=== PATIENT | male | born 1960 | race African-American/Black ===

== ENCOUNTER 2020-11-13 13:27 | Inpatient (IN) | payer MEDICAID ==
[~2020-11-13] VITALS: Ht 167.6 cm; Wt 53.9 kg
[2020-11-13 14:46] LABS: COVID AG,FIA SOURCE NASOPHARYNGEAL
[2020-11-13] MEDS ORDERED: LORazepam 2 MG TABLET PO PRN (17:15)
[2020-11-13] MEDS ORDERED: HALOPERIDOL 5 MG TABLET PO PRN (17:15)
[2020-11-13] MEDS ORDERED: ZOLPIDEM TARTRATE 10 MG TABLET PO PRN (17:15)
[2020-11-14 13:24] VITALS: BP 118/60
[2020-11-14] MEDS ORDERED: PNEUMOCOCCAL VACCINE POLYVALENT 0.5 ML VIAL [PPSV23] IM. ONE (15:00)
[2020-11-14 16:34] VITALS: BP 115/77
[2020-11-15] MEDS ORDERED: GuaiFENesin/D-METHORPHAN [SUGAR-FREE] 200-20MG/10 ML SYRUP UDCUP PO PRN (06:30)
[2020-11-15] MEDS ORDERED: DOCUSATE SODIUM 100 MG CAPSULE PO PRN (06:30)
[2020-11-15] MEDS ORDERED: ONDANSETRON HCL 4 MG TABLET PO PRN (06:30)
[2020-11-15] MEDS ORDERED: PETROLATUM,WHITE 28 GM JELLY TP PRN (06:30)
[2020-11-15] MEDS ORDERED: ALBUTEROL SULFATE HFA 90 MCG/PUFF 8 GM INHALER IH PRN (06:30)
[2020-11-15] MEDS ORDERED: MAG HYDROX/AL HYDROX/SIMETH ES 30 ML SUSPENSION UDCUP PO PRN (06:30)
[2020-11-15] MEDS ORDERED: NICOTINE 14 MG/24 HOUR PATCH TD PRN (06:30)
[2020-11-15] MEDS ORDERED: LOPERAMIDE HCL 2 MG CAPSULE PO PRN (06:30)
[2020-11-15] MEDS ORDERED: IBUPROFEN 400 MG TABLET PO PRN (06:30)
[2020-11-15] MEDS ORDERED: ACETAMINOPHEN 325 MG TABLET PO PRN (06:30)
[2020-11-15] MEDS ORDERED: CloNIDine HCL 0.1 MG TABLET PO PRN (06:30)
[2020-11-15] MEDS ORDERED: MAGNESIUM HYDROXIDE SUSPENSION 30 ML UDCUP PO PRN (06:30)
[2020-11-15 08:09] VITALS: BP 121/73
[2020-11-15] MEDS: NICOTINE 7 MG/24 HOUR PATCH TD SCH (09:00)
[2020-11-15] MEDS: SERTRALINE HCL 50 MG TABLET PO SCH (15:51)
[2020-11-15 16:08] VITALS: BP 135/71
[2020-11-15] MEDS: RisperiDONE 1 MG TABLET PO SCH (16:45)
[2020-11-16 08:09] VITALS: BP 126/61
[2020-11-16] MEDS: NICOTINE 7 MG/24 HOUR PATCH TD SCH (09:00)
[2020-11-16] MEDS: RisperiDONE 1 MG TABLET PO SCH ×2 (09:19→17:01)
[2020-11-16] MEDS: SERTRALINE HCL 50 MG TABLET PO SCH (09:19)
[2020-11-17 08:06] VITALS: BP 109/65
[2020-11-17] MEDS: SERTRALINE HCL 50 MG TABLET PO SCH (08:30)
[2020-11-17] MEDS: NICOTINE 7 MG/24 HOUR PATCH TD SCH (08:30)
[2020-11-17] MEDS: RisperiDONE 1 MG TABLET PO SCH (08:30)
[2020-11-17] MEDS ORDERED: SERT-158 PO (11:25)
[2020-11-17] MEDS ORDERED: RISP1TAB48 PO (11:25)
== END 2020-11-17 14:00 | disposition home or self-care (01) | DRG 750 ==
LOC: EMS 13:27 → 3EC 11-14 11:40
PROVIDERS: ADMIT Psychiatry & Neurology Child & Adolescent Psychiatry; ATTEND Psychiatry & Neurology Child & Adolescent Psychiatry
DX: F20.0 Paranoid schizophrenia (principal); R00.1 Bradycardia, unspecified; F10.10 Alcohol abuse, uncomplicated; Z87.891 Personal history of nicotine dependence; F12.90 Cannabis use, unspecified, uncomplicated; F41.9 Anxiety disorder, unspecified; G47.00 Insomnia, unspecified; F32.9 Major depressive disorder, single episode, unspecified; R03.0 Elevated blood-pressure reading, without diagnosis of hypertension; Z20.822 Contact with and (suspected) exposure to COVID-19; Z79.899 Other long term (current) drug therapy
CPT/HCPCS: 99285